=== PATIENT | female | born 1950 | race Caucasian/White ===

== ENCOUNTER 2016-10-08 14:23 | Inpatient (IN) ==
[2016-10-08] MEDS ORDERED: NS 1,000 ML IV ONE (15:14)
[2016-10-08 15:39] LABS: BASO% 2.7 % (0.0-0.8); EOS# 0.09 X1000 (0.0-0.7); EOS% 0.9 % (0.0-10.0); HEMATOCRIT 32.3 % (37.0-47.0); HEMOGLOBIN 10.3 g/dL (12.0-16.0); IMM GRAN# 0.07 X1000 (0.0-0.04); IMM GRAN% 0.7 % (0.0-0.5); LYMPH# 5.71 X1000 (1.2-3.4); LYMPH% 57.3 % (20.5-51.1); MANUAL DIFF NEEDED? NO; MCH 30.5 PG (27-31); MCHC 31.9 g/dL (33-37); MCV 95.6 FL (81-99); MONO# 0.68 X1000 (0.11-0.59); MONO% 6.8 % (1.7-9.3); MPV 8.6 FL (7.4-10.4); NEUT% 31.6 % (42.2-75.2); PLT 132 X1000 (130-400); RBC 3.38 XMIL (4.2-5.4)
[2016-10-08 16:09] LABS: AGAP 15; ALBUMIN 3.2 g/dL (3.5-5.0); ALKALINE PHOSPHATASE 555 U/L (32-104); AMYLASE 37 U/L (20-200); BUN 13 mg/dL (8-22); CALCIUM 9.1 mg/dL (8.8-10.2); CHLORIDE 95 mmol/L (98-107); CK PROFILE 28 U/L (24-173); COSMO 267; GOT 66 U/L (10-30); GPT 23 U/L (10-36); LIPASE 113 U/L (13-60); MAGNESIUM 2.2 mg/dL (1.5-2.7); POTASSIUM 4.2 mmol/L (3.5-5.1); SODIUM 133 mmol/L (136-145); TCO2 23 mmol/L (25-35); TOTAL PROTEIN 7.5 g/dL (6.3-8.3)
[2016-10-08 16:31] LABS: URINE CULTURE PL NEEDED? NO
[2016-10-08 16:36] LABS: BILIRUBIN URINE NEGATIVE (NEGATIVE); BLOOD URINE 1+ (NEGATIVE); CLARITY CLEAR (CLEAR); COLOR YELLOW; GLUCOSE URINE NEGATIVE (NEGATIVE); LEUKOCYTES URINE TRACE (NEGATIVE); NITRITE URINE NEGATIVE (NEGATIVE); PROTEIN URINE TRACE mg/dL (NEGATIVE); SP GRAVITY URINE 1.015; UROBILINOGEN URINE 1+(1 mg/dL)
[2016-10-08 16:42] LABS: URINE EPITHELIAL CELLS >10 /HPF (<10); URINE RBC <10 /HPF (<10); URINE SOURCE CLEAN CATCH; URINE WBC <10 /HPF (<10)
--- NOTE | 2016-10-08 17:34 | Diag Imaging Result Document ---
PROCEDURE NAME: CHEST-PORTABLE - 10/08/2016 PORTABLE AP CHEST: FINDINGS: Poor inspiratory effort. Tortuous thoracic aorta. The heart is mildly prominent. There are old bilateral rib fractures. No pleural effusion is identified. Atelectasis or fibrosis in the right base. No consolidation. IMPRESSION: No definite pneumonia.
--- NOTE | 2016-10-08 17:36 | PROVIDER DOCUMENTATION ---
This chart was entered by Chayo Amador Scribe, acting as scribe for Yadiel Mcdaniel MD. HPI-General Adult - General Chief Complaint: Weakness Stated Complaint: STAGE 4 BREAST CANCER/WEAK Time Seen by Provider: 10/08/16 14:28 Source: patient, family Allergies/Adverse Reactions: Patient Allergies Allergy/AdvReac Type Severity Reaction Status Date / Time Sulfa (Sulfonamide Allergy Mild RASH Verified 10/08/16 14:50 Antibiotics) Penicillins AdvReac Mild VOMITING Verified 10/08/16 14:50 FLUOROQUINOLONES AdvReac Severe CARDIAC Uncoded 10/08/16 14:52 ARRYTHMIAS Home Medications: Home Medication List Medication Instructions Recorded Confirmed Last Taken Type NK [No Home Medications] 10/08/16 10/08/16 Unknown History - History of Present Illness -Gen Adult Nature of Presenting Problems: Pt is 66 y/o F presents to the ED for weakness. Pt states she has breast cancer and refused treatment. Pt states she is going natural for her treatment. Pt's brother states she has lost 100 lbs in 5 months. Pt denies pain. Location of Pain/Injury: reports: generalized Pain Radiation: reports: no radiation Quality of Pain: reports: aching Severity: reports: mild Onset/Duration: reports: other (10 days) Timing: reports: still present Context/Activities at Onset: reports: light activity Modifying Factors: improves with: nothing Associated Symptoms: reports: weakness (generalized) Similar Symptoms Previously?: Yes Recently seen or treated by another doctor?: No Review of Systems - Adult - REVIEW OF SYSTEMS - ADULT Constitutional: reports: no symptoms reported Eyes: reports: no symptoms reported Ears, Nose, Mouth & Throat: reports: no symptoms reported Cardiovascular: reports: irregular heart rate (tachy). denies: chest pain, heart murmur Respiratory: reports: no symptoms reported Gastrointestinal: reports: no symptoms reported Genitourinary: reports: no symptoms reported Musculoskeletal: reports: muscle weakness. denies: bone pain, joint pain, neck pain Integumentary: reports: no symptoms reported Neurological: reports: no symptoms reported Psychiatric: reports: no symptoms reported Endocrine: reports: no symptoms reported Hematologic/Lymphatic: reports: no symptoms reported Allergic/Immunologic: reports: no symptoms reported All Other Systems: Reviewed and Negative Past History - Adult - PAST MEDICAL HISTORY-ADULT Review of Records: reports: Nursing Assessment Review, Medications Reviewed, Social history reviewed & non-contributory. Major Childhood Illnesses: reports: denies history Cardiovascular: reports: denies history Respiratory: reports: denies history Gastrointestinal: reports: denies history Obstetrical/Gynecological: reports: denies history Genitourinary: reports: denies history Musculoskeletal: reports: denies history Neurological: reports: denies history Endocrine/Immune: reports: denies history Other Conditions: reports: denies history - PRIOR SURGERIES/PROCEDURES Surgical/Procedure History: reports: reviewed, not pertinent - IMMUNIZATION STATUS Childhood Immunizations: See Nurse Assessment Flu Vaccine: See Nurse Assessment - FAMILY HISTORY Family History: reviewed, not pertinent - SOCIAL HISTORY Smoking: denies Substance Use: denies Living Situation: family Physical Exam-General - PHYSICAL EXAM-ADULT Initial Vital Signs Reviewed: Yes - CONSTITUTIONAL General Appearance: alert, no apparent distress. negative: appears well (ill in appearance) - EYES Eyes: PERRL/EOMI, pink conjunctivae - HEAD, EARS, NOSE, MOUTH & THROAT HENMT: normocephalic/atraumatic, moist mucous membranes, normal ENT inspection, TMs normal, pharynx normal - NECK Neck: non-tender, full range of motion, supple, normal inspection - RESPIRATORY Respiratory: chest non-tender, lungs clear, normal breath sounds, no pleuratic chest pain, no respiratory distress, no accessory muscle use - CARDIOVASCULAR Cardiovascular: normal peripheral pulses, no edema, no gallop, no JVD, no murmur , tachycardia - CHEST (BREASTS) Chest/Breast: no tenderness, mass/lump noted (bilateral breast) - GASTROINTESTINAL (ABDOMEN) Abdominal Exam: normal bowel sounds, non tender, soft, no organomegaly, no pulsatile mass - LYMPHATIC Lymphatic: no adenopathy - MUSCULOSKELETAL Back Exam: normal inspection, no CVA tenderness, no vertebral tenderness Extremity: normal range of motion, non-tender - SKIN Integumentary: normal turgor, warm/dry, pallor - NEUROLOGIC Neurologic: grossly normal - PSYCHIATRIC Psych/Mental Status: normal mood/affect, oriented x 3 Progress - PLAN OF CARE/RESULTS Progress/Plan/Lab Results: Vital Signs - 8 hr 10/08/16 14:27 Temperature 97.8 F Pulse Rate 121 H Respiratory Rate 19 Blood Pressure 148/100 O2 Sat by Pulse Oximetry 99 Result Diagrams: 10/08/16 15:25 10/08/16 15:25 - XRAY 1 XRAY: Bilateral XRAY Study: Chest Impression: Normal XRAY Interpretation: poor inspiration. no definite pneumonia - CONSULTS/PCP/HOSPITALIST Notification #1 *Consult/PCP/Hospitalist*: Dr. Yates Time Discussed: 17:22 Reason/Comments: Dr. Mcdaniel consults with Dr. Yates about admit of Pt Consult Disposition: Admit Departure - Departure Time of Disposition Decision: 16:46 DIAGNOSIS: Generalized weakness, Dehydration Breast cancer Qualifiers: Breast location: unspecified site of breast Patient sex: female Laterality: unspecified laterality Qualified Code(s): C50.919 - Malignant neoplasm of unspecified site of unspecified female breast Disposition: ADMITTED INPATIENT 09 Certified Medical Emergency: Emergent Condition: Stable Additional Freetext Instructions: ED Follow Up Instructions: You have been treated by a care provider in the Emergency Department. These instructions are being provided to you so you can have an understanding of how to care for yourself upon discharge. Upon discharge from the Emergency Department, you are responsible for making arrangements for follow-up care by a physician of your choice. Take all prescribed medications as directed. Return to the Emergency Department immediately for any new or worsening symptoms. You may call the Physician Referral phone number at [phone] to obtain a list of Physicians who are taking new patients. Referrals and Follow-Ups: Sergei Yates MD [Primary Care Provider] - This chart was documented by the indicated scribe, (Chayo Amador Scribe) and accurately reflects the services I performed and decisions made by me, Yadiel Mcdaniel MD, as attested by the provider's signature.
[2016-10-09] MEDS ORDERED: NS 1,000 ML IV SCH (00:39)
--- NOTE | 2016-10-09 10:53 | HISTORY AND PHYSICAL ---
CHIEF COMPLAINT: Weakness. HISTORY OF PRESENTING ILLNESS: This is a 66-year-old female, who presented to [facility] with complaints of weakness. 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 On arrival her laboratory data was fairly unremarkable. Her sodium was 133. Her alkaline phosphatase was elevated at 555 with a lipase of 113. Urine was negative. Chest x-ray showed no definite pneumonia. She states that she is not interested in seeing an oncologist, is not interested in any medical intervention at this time. She was admitted for further evaluation and treatment. PAST MEDICAL HISTORY: Stage IV adenocarcinoma with metastases to the lung and bone. SURGICAL HISTORY: None. FAMILY HISTORY: Noncontributory. SOCIAL HISTORY: She currently lives with family. Denies any tobacco, alcohol, illicit drug use, but she does use cannabis oil for treatment of her cancer at this time. ALLERGIES: To sulfa, penicillin and fluoroquinolones. HOME MEDICATIONS: She does not take any medications on a routine basis. LABORATORY DATA: Showed a white blood cell count of 9.97, hemoglobin 10.3, hematocrit 32.3, platelets 132. Sodium of 133, potassium 4.2, chloride 95, CO2 23, BUN of 13, creatinine 0.6, glucose 104, magnesium 2.2. AST of 66, ALT of 23, alkaline phosphatase of 555. Creatine kinase of 28. Troponin less than 0.010. Amylase of 37, lipase 113. Urinalysis negative. IMAGING: Chest x-ray showed no definite pneumonia. REVIEW OF SYSTEMS: She denies any fever, chills, blurred vision, dizziness. She is positive for generalized weakness, weight loss that she states has been about 100 pounds over 6 months. Denied any chest pain, coughing, shortness of breath, constipation. She is positive for some diarrhea that she states was related to her using carrot juice; she stopped it and it did improve. Denies any burning or hurting with urination, and she is positive for lymphedema in her right arm. PHYSICAL EXAMINATION: VITAL SIGNS: On arrival, she had a temperature of 97.8 degrees, a pulse of 121, respirations 19, blood pressure 148/100, satting 99% on room air. GENERAL: This is a 66-year-old female, lying in the bed, answers questions appropriately. HEENT: Normocephalic and atraumatic. Pupils are equal, round, and reactive to light. Extraocular movements are intact. The oropharynx and nares are clear. NECK: Supple. LUNGS: With diminished breath sounds in the left lower lobe, crackles in the right lower lobe. Equal lung expansion and chest wall movement. HEART: With regular rate and rhythm. No murmurs, rubs, or gallops. ABDOMEN: Soft, nontender, nondistended. Bowel sounds are present x4 quadrants. EXTREMITIES: No clubbing, cyanosis, or edema. NEUROLOGICAL: The cranial nerves 2-12 are grossly intact. ASSESSMENT: 1. Generalized weakness. 2. Stage IV adenocarcinoma in her breast with metastases to lungs and bone. 3. Mild protein calorie malnutrition. PLAN: She was admitted. Placed on telemetry. Regular diet. Placed on normal saline at 75 mL an hour. The patient states that she is not interested in any medications for any treatment at this time and she is vegetarian. Dictated by DIMPLE Young for Sergei Yates MD cc: DIMPLE Young MD
--- NOTE | 2016-10-09 14:48 | PROGRESS NOTE ---
DATE: 10/09/2016 SUBJECTIVE: Today Ms. Rodriguez refers to be doing fine. Briefly, Ms. Rodriguez is a lady who just relocated from [place] to here in [place] since 3 days ago. According to her, she just felt extremely weak and tired and exhausted, so she came and was found to be dehydrated, so she states she was started on some IV fluids. Today she refers to be doing a whole lot better. Briefly, Ms. Rodriguez has been diagnosed with breast cancer since May 2016, but according to her, she does not want any conventional therapy and she uses some alternative natural medications. She does not want any biopsy. She does not want any chemo. She does not want anything at all to be done. She she just came because she was feeling weak and she needs some fluids. OBJECTIVE: Vital Signs: Today blood pressure is 137/58, pulse of 103. Respirations 20, temperature 98.4 degrees. General: Ms. Rodriguez she is a 66-year-old female. She is in bed, not seemingly distressed. HEENT: Mucosa is dry, anicteric and acyanotic. Neck: Supple. There is some tonic contraction of the neck toward the right. Breasts: The right breast is swollen, mildly tender. It is not erythematous. It is just hard, firm with multi-infiltration into the skin consistent with infiltrative cancer. Extremities: No pedal edema. MILITARY EQUIPMENT SPECIALIST: Patient is alert and oriented x4. There is no focal neurological deficit. LABORATORY DATA: WBC is 9.97, hemoglobin is 10.3, platelet is 135,000. Chemistry is reviewed. Sodium is 133, potassium is 4.2, chloride is 95, bicarb is 23, a chest x-ray which was done on presentation shows no definite pneumonia. ASSESSMENT: 1. Dehydration. 2. Generalized weakness, likely due to dehydration and progression of her underlying disease. 3. History of adenocarcinoma of the breast, likely with metastasis to lungs and to bone. 4. Shortness of breath with exertion, which I think is partly due to the metastatic disease as well as the dehydration. 5. Normocytic anemia. We will do iron studies to make sure that there is not any underlying iron deficiency. PLAN: In general, I think Ms. Rodriguez has metastatic disease and she is just dehydrated, and she came in mainly for the hydration and therapy. We will going to do a CT scan of the chest and the neck to see what is the burden of her disease and see if there is any infectious etiology in the lung that could be accounting for her shortness of breath. I will go ahead and increase the rate on the fluids to 100 mL/hour. Hopefully, we will be able to discharge her tomorrow. cc: Blayne Salazar MD
[2016-10-09] MEDS: NS 1,000 ML IV SCH (20:54)
[2016-10-10] MEDS: NS 1,000 ML IV SCH (00:25)
[2016-10-10 06:57] LABS: BASO% 2.9 % (0.0-0.8); EOS# 0.11 X1000 (0.0-0.7); EOS% 1.3 % (0.0-10.0); HEMATOCRIT 26.3 % (37.0-47.0); HEMOGLOBIN 8.4 g/dL (12.0-16.0); IMM GRAN# 0.05 X1000 (0.0-0.04); IMM GRAN% 0.6 % (0.0-0.5); LYMPH# 4.93 X1000 (1.2-3.4); LYMPH% 58.9 % (20.5-51.1); MANUAL DIFF NEEDED? YES; MCH 31.6 PG (27-31); MCHC 31.9 g/dL (33-37); MCV 98.9 FL (81-99); MONO# 0.54 X1000 (0.11-0.59); MONO% 6.5 % (1.7-9.3); MPV 9.6 FL (7.4-10.4); NEUT% 29.8 % (42.2-75.2); RBC 2.66 XMIL (4.2-5.4)
[2016-10-10 07:13] LABS: AGAP 13; ALBUMIN 2.5 g/dL (3.5-5.0); ALKALINE PHOSPHATASE 518 U/L (32-104); BUN 10 mg/dL (8-22); CALCIUM 8.5 mg/dL (8.8-10.2); CHLORIDE 106 mmol/L (98-107); COSMO 272; GOT 53 U/L (10-30); GPT 17 U/L (10-36); SODIUM 137 mmol/L (136-145); TCO2 18 mmol/L (25-35); TOTAL PROTEIN 6.2 g/dL (6.3-8.3)
--- NOTE | 2016-10-10 07:27 | Diag Imaging Result Document ---
PROCEDURE NAME: THORAX/NECK - 10/09/2016 CT OF THE NECK WITH INTRAVENOUS CONTRAST: There is marked supraclavicular adenopathy on the right with nodes exceeding 2 cm extending from the base of the trapezius anteriorly. The study is somewhat suboptimal due to patient positioning; however, the nasopharynx and pharynx are relatively normal in appearance. The epiglottis is not enlarged. There is apparent lytic disease in the skull base with some patchy areas of sclerosis. This is also true of the occipital condyles. The lateral elements of C1 on the left and to some extent on the right side and extensively elsewhere throughout the visualized cervical spine. There are also mixed lytic and sclerotic lesions present in the scapula on the right which is included on the field of view. IMPRESSION: Massive right supraclavicular adenopathy and extensive osseous metastatic disease. CT OF THE CHEST WITH INTRAVENOUS CONTRAST: FINDINGS: There is again extensive mixed lytic and sclerotic lesions throughout the visualized skeleton including the scapulae, humeri, ribs, and spine. This is also true of the clavicles and sternum. There is pleural thickening and fluid particularly on the left side. Some of this may be loculated. There are fibrotic or atelectatic changes in both lower lobes, the middle lobe, and the lingula. In addition to the previously described right supraclavicular adenopathy, there is also extensive adenopathy present deep to the pectoralis musculature and massive matted adenopathy in the right axilla. There are also nodular masses possibly representing nodes in the subcutaneous fat anterior to the right pectoralis muscle. There is a large hiatal hernia. There is a nonspecific right paratracheal node. IMPRESSION: Extensive abnormal adenopathy on the right as described. Nonspecific pleural and parenchymal changes. Extensive osseous metastatic disease.
[2016-10-10 08:34] LABS: BANDS 1 % (0-1); BASO 2 % (0-1); EOS 1 % (1-10); HYPOCHROM OCCASIONAL; LYMPHS 49 % (21-51); MONO 1 % (1-9); NRBC 24 % (0-0); PLT 126 X1000 (130-400); POLYCHROM 1+
[2016-10-10 12:27] VITALS: BP 137/63
--- NOTE | 2016-10-10 15:20 | DISCHARGE SUMMARY ---
ADMISSION DATE: 10/08/2016 DISCHARGE DATE: 10/10/2016 ADMISSION DIAGNOSES: 1. Generalized weakness. 2. Stage IV adenocarcinoma of her breast with metastases to lung and bone. 3. Mild protein calorie malnutrition. DISCHARGE DIAGNOSES: 1. Generalized weakness. 2. Stage IV adenocarcinoma of her breast with metastases to lung and bone. 3. Mild protein calorie malnutrition. 4. Hypoxia. SUMMARY OF FINDINGS: This is a 66-year-old female who presented to [facility] ER with complaints of weakness. States that she has been diagnosed with stage IV adenocarcinoma with metastases to the lung and bone. States that she has refused any chemotherapy, radiation or, medications that are prescribed by a physician, stating that it was against her restorationist and that she has been treating herself with alternative herbal supplements and cannabis oil. When she arrived, her laboratory data was pretty much unremarkable. Urine was negative. Chest x-ray showed no pneumonia. Stated that she had been given an oncologist but that she was not interested in seeing 1. We did do a neck and chest CT due to her complaints of have some right-sided neck pain. Impression showed a massive right subclavicular adenopathy with extensive osseous metastatic disease. The chest CT showed extensive abnormal adenopathy on the right as described, nonspecific pleural and parenchymal changes, extensive osseous metastatic disease. I discussed discharge options with this patient. Was initially looking at rehab but due to the metastasis to her bones and fear of easily being fractured, rehab became not an option for this patient at this time. We did also discuss hospice and home health with this patient and she stated she appreciated our alternatives but that she was not interested at this time and wanted to continue with her alternative medications, cannabis oil. We offered her supplemental O2 as her O2 saturation have been 91-93% on 2 L. She was agreeable to the O2 so we are setting that up for home use. We offered her pain medications and she said at this time she is just not interested and we will respect her wishes at this time. It is felt that she will be discharged home. We will provide her with oncologist's phone numbers despite the fact that she said she was not interested; we are still going to give her those. TIME SPENT: 35 minutes. Dictated by DIMPLE Young for Blayne Salazar MD cc: DIMPLE Youngsah, MD
== END 2016-10-10 18:00 | disposition home or self-care (01) ==
LOC: P.EDIPHOLD 14:23 → P.ED 14:23 → SUATTDRO 18:41 → OBSVTOIN 18:41 → P.MEDSURG 19:55
PROVIDERS: ATTEND Internal Medicine